=== PATIENT | male | born 1970 | race African-American/Black ===

== ENCOUNTER 2019-06-25 11:10 | Emergency (ER) | payer BC ==
[~2019-06-25] VITALS: Ht 182.9 cm; Wt 136.1 kg
[~2019-06-25 11:10] MED LIST: AGGRENOX 25 MG1 EACH PO; COQ-10100 MG PO; FISH OIL 1,0001 EAC8; IBUPROFEN 600600 M1 PO; LIPTRUZET PO; NORCO 5-325 TA1 EACH PO
[2019-06-25] MEDS ORDERED: ZETIA10 MG PO (11:41)
[2019-06-25] MEDS ORDERED: LIVALO4 MG PO (11:41)
[2019-06-25] MEDS ORDERED: COZAAR 25 MG TA25 M2 PO (11:42)
[2019-06-25] MEDS ORDERED: ACTOS 30 MG TAB30 M1 PO (11:42)
[2019-06-25] MEDS ORDERED: VASCEPA1 GM PO (11:43)
[2019-06-25] MEDS ORDERED: INVOKAMET 150-1 EACH PO (11:43)
[2019-06-25 13:22] VITALS: BP 131/82
[2019-06-30] MEDS ORDERED: OZEMPIC1 MG/0.75 SUBQ (08:59)
[2019-06-30] MEDS ORDERED: LOSARTAN POTASS50 MG PO (09:00)
[2019-06-30] MEDS ORDERED: ACTOS15 MG PO (09:22)
== END 2019-06-25 13:23 | disposition home or self-care (01) ==
LOC: ER 11:10
DX: R51 Headache (principal); R53.83 Other fatigue; E78.5 Hyperlipidemia, unspecified; Z86.73 Personal history of transient ischemic attack (TIA), and cerebral infarction without residual deficits; Z79.82 Long term (current) use of aspirin; Z79.899 Other long term (current) drug therapy

== ENCOUNTER → 2019-07-02 | Outpatient (CLI) | payer BC ==
[~2019-07-02] VITALS: Ht 180.3 cm; Wt 136.1 kg
[~2019-07-02] MED LIST changes: +ACTOS 30 MG TAB30 M1 PO; +ACTOS15 MG PO; +COZAAR 25 MG TA25 M2 PO; +INVOKAMET 150-1 EACH PO; +LIVALO4 MG PO; +LOSARTAN POTASS50 MG PO; +OZEMPIC1 MG/0.75 SUBQ; +VASCEPA1 GM PO; +ZETIA10 MG PO
[2019-07-02 13:11] LABS: HEMATOCRIT 45.5 % (42.0-52.0); HEMOGLOBIN 15.3 gm/dL (14.0-18.0); MCH 32.8 pg (26.0-34.0); MCHC 33.5 g/dL (28.0-37.0); MCV 97.7 fL (80.0-100.0); RBC 4.66 mil/uL (4.50-6.00); RDW 13.1 % (10.5-14.5); WBC 4.6 thou/uL (4.0-11.0)
[2019-07-02 13:13] LABS: URINE BILIRUBIN NEGATIVE (Negative); URINE BLOOD NEGATIVE (Negative); URINE CLARITY CLEAR; URINE COLOR YELLOW; URINE GLUCOSE-RANDOM* 3+ (Negative); URINE KETONES NEGATIVE (Negative); URINE LEUKOCYTES-REFLEX NEGATIVE (Negative); URINE NITRITE-REFLEX NEGATIVE (Negative); URINE PROTEIN (DIPSTICK) NEGATIVE (Negative)
[2019-07-02 13:27] LABS: ALBUMIN 4.1 g/dL (3.4-5.0); CALCIUM 8.9 mg/dL (8.5-10.1); CREATININE 1.2 mg/dL (0.7-1.3); PROTIME 10.2 Seconds (9.3-11.4)
[2019-07-03 00:08] LABS: GLYCOHEMOGLOBIN (HGB A1C) 6.4 % (4.8-5.6)
--- NOTE | 2019-08-01 11:33 | EKG ---
[facility] [place] [address] ELECTROCARDIOGRAM REPORT Name: VERÓNICA ESQUIVEL [facility] [id number] Admission: 07/02/19 Attend Phys: Reginald Gabriel MD Discharge: Date of : 72 Report #: [id number] THIS REPORT FOR: cc: Andrea Grover MD, John H. MD Couchonnal, Luis F. MD ~ THIS REPORT FOR: //name// [facility] Test Date: 2019-07-02 Test Time: 13:05:51 Pat Name: VERÓNICA ESQUIVEL Department: Room: Gender: Social Sciences Professor: JAYE KELLY : 1970 Requested By: Reginald Gabriel Order Number: [id number] MD: Jerrod Logan Measurements Intervals [place] Rate: 96 P: 58 GA: 157 QRS: 47 QRSD: 74 T: -25 QT: 334 QTc: 422 Interpretive Statements Sinus rhythm Inferior infarct, age indeterminate Compared to ECG 04/24/2013 00:59:30 No significant changes Electronically Signed On 07-02-2019 16:28:07 CDT by Jerrod Logan [email or web address] <ELECTRONICALLY SIGNED> By: Jerrod Logan MD 07/02/19 1628 1305 1305 Jerrod Logan MD /EPI
== END ==
LOC: OR → PAC 12:37 → OR 07-16 07:47 → EDSTATUS 07-16 13:29 → OR 07-16 15:06
PROVIDERS: Orthopaedic Surgery
DX: I21.19 ST elevation (STEMI) myocardial infarction involving other coronary artery of inferior wall (principal)

== ENCOUNTER → 2019-08-27 | Outpatient (CLI) | payer BC ==
[~2019-08-27] VITALS: Ht 182.9 cm; Wt 134.3 kg
[2019-08-27 09:00] LABS: HEMATOCRIT 43.7 % (42.0-52.0); HEMOGLOBIN 14.9 gm/dL (14.0-18.0); MCH 33.2 pg (26.0-34.0); MCHC 34.2 g/dL (28.0-37.0); MCV 97.3 fL (80.0-100.0); RBC 4.49 mil/uL (4.50-6.00); RDW 13.2 % (10.5-14.5); WBC 3.8 thou/uL (4.0-11.0)
[2019-08-27 09:03] LABS: CALCIUM 8.5 mg/dL (8.5-10.1); CREATININE 1.2 mg/dL (0.7-1.3); POTASSIUM 3.8 mmol/L (3.5-5.1)
[2019-08-27 09:26] VITALS: BP 139/82
--- NOTE | 2019-08-28 07:50 | EKG ---
[facility] [place] [address] ELECTROCARDIOGRAM REPORT Name: VERÓNICA ESQUIVEL Room #: REG [facility]#: [id number] Admission: 08/27/19 Attend Phys: Adan Ayala Discharge: Date of : 72 Report #: [id number] THIS REPORT FOR: cc: Andrea Grover MD, John H. MD Lundgren,Surya Dillard MD [facility] THIS REPORT FOR: //name// [facility] Test Date: 2019-08-27 Test Time: 08:52:23 Pat Name: VERÓNICA ESQUIVEL Department: Room: Gender: [employer] Machine Setter: [facility] : 1970 Requested By: Adan Ayala Order Number: [id number] MD: Surya Blevins Measurements Intervals [place] Rate: 94 P: 41 WI: 178 QRS: 32 QRSD: 92 T: -15 QT: 321 QTc: 402 Interpretive Statements Sinus rhythm Nonspecific ST segment abnormality Small inferior Q waves Compared to ECG 07/02/2019 13:05:51 No significant changes Electronically Signed On 08-28-2019 7:49:14 CDT by Surya Blevins [email or web address] <ELECTRONICALLY SIGNED> By: Surya Blevins MD, FACC 08/28/19 0749 0852 0852 Surya Blevins MD, [facility] /EPI
--- NOTE | 2019-09-02 10:23 | CATHLAB ---
[facility] [place] [address] INVASIVE PROCEDURE REPORT Name: VERÓNICA ESQUIVEL Room #: REG [facility] Leda#: [id number] Admission: 08/27/19 Attend Phys: Adan Ayala Discharge: Date of : 72 Report #: [id number] THIS REPORT FOR: cc: Andrea Grover MD, John H. MD Lammoglia, Francisco J. MD ~ APPROVED REPORT Study performed: 08/27/2019 09:17:26 Patient Details Patient Status: Out-Patient Room #: The patient is a 49 year-old male Event Personnel Adan Ayala Temporary Receptionist, Angelito Larios RN, Mel Quick Paschal, Ja'net RTR Monitor Procedures Performed Left Heart Cath w/or w/o Coronaries [id number] [facility] Art Access - R femoral artery* 35078 Initial Mod Sed Same Phys/QHP Gr5y 119306 42181 Mod Sed Same Phys/QHP Ea 102371 Hemostasis w/ Mynx, supervision of conscious sedation Indication Positive stress test, Chest pain Procedure Narrative The patient was brought electively to the Cardiac Catheterization Laboratory and was prepped and draped in a sterile manner. The Right Groin^ was infiltrated with 1% Lidocaine subcutaneous anesthesia. A Advanced Image EnhancementNACLE 6FR TIF Sheath #[id number] sheath was inserted into the RFA^. Coronary angiography was performed using coronary diagnostic catheters. The right coronary system was accessed and visualized with a JR4 catheter. The left coronary system was accessed and visualized with a JL4 catheter. The left ventricle was accessed and visualized with a ANGLED PIGTAIL catheter. Closure device was deployed with a Fr MYNXGRIP 6/7F #[id number]. The patient tolerated the procedure well and there were no complications associated with the procedure. There was no hematoma. Intraoperative Conscious Sedation Sedation start time: 9:50 Case end Time: 10:28 [facility] [place] [address] INVASIVE PROCEDURE REPORT Name: VERÓNICA ESQUIVEL Room #: REG Leda#: [id number] Admission: 08/27/19 Attend Phys: Adan Fitzgerald Discharge: Date of : 72 Report #: [id number] Versed 2 mg Fluoro Time: 3.60 minutes Dose: DAP 7284 cGycm2 1274 mGy Contrast Type and Amount: Omnipaque 55 ml Coronary Angiography The patient's coronary anatomy is right dominant. Diagnostic Cath Left Main Normal origin moderate caliber the proximal taper of less than 30%. He then continues giving rise to left anterior descending and left circumflex without significant high-grade disease. LAD Moderate caliber type II vessel which has luminal irregularities present as it courses in the anterior interventricular sulcus giving rise to several diagonal branches. It tapers in the distal third and terminates at the left ventricular apex as a bifurcating vessel Diagonal 1 Small insignificant caliber vessel without high-grade disease noted Circumflex Moderate caliber vessel which is rise to 2 early marginal branches and continues in the AV groove posteriorly to give a posterior wall marginal branch. This posterior wall marginal branch is quite small in size and has diffuse high-grade disease noted. A posterior atrial branch is present. The first marginal and second marginal have moderate lesions in the proximal third but then continue on on the lateral aspect of the ventricle without high-grade lesions noted OM1 Small caliber vessel of less than 1.5 mm in diameter that has irregularities of approximately 50% and is initial third. And then continues on without significant high-grade stenosis noted OM2 Small caliber vessel of approximately 1.5 to 2 mm in diameter that has a proximal eccentric lesion that appears to be approximately 75%. It does not impede DEDE I flow. Right Coronary Moderate caliber vessel normal origin with irregularities present of less than 30%. It reaches the proximal of the heart gives rise to a small posterior descending artery and terminates the posterior wall branch. No high degree obstructive lesions are noted R PDA Small caliber vessel with mild diffuse irregularities present Left Ventriculography Left Ventriculography was not performed. [facility] [address] [place] [address] INVASIVE PROCEDURE REPORT Name: VERÓNICA ESQUIVEL Room #: REG CL Leda#: [id number] Admission: 08/27/19 Attend Phys: Adan Fitzgerald Discharge: Date of : 72 Report #: [id number] Hemodynamics The aortic pressure is 112/81 mmHg with a mean of 95 mmHg. The left ventricular pressure is 126/9 mmHg with a mean of mmHg. The left ventricular end diastolic pressure is 20 mmHg. Conclusion 1. Coronary disease moderate involving left circumflex marginal branches 2. Normal hemodynamics Recommendations Cardiac Risk Reduction Program Aggressive Medical Therapy <ELECTRONICALLY SIGNED> By: Adan Ayala MD 09/02/19 1020 1020 1020 Adan Ayala MD /INF
== END | disposition home or self-care (01) ==
LOC: CATH 06:43
PROVIDERS: Internal Medicine
DX: R07.9 Chest pain, unspecified (principal); R94.39 Abnormal result of other cardiovascular function study; I25.10 Atherosclerotic heart disease of native coronary artery without angina pectoris; I10 Essential (primary) hypertension; E11.9 Type 2 diabetes mellitus without complications; E78.5 Hyperlipidemia, unspecified; G47.30 Sleep apnea, unspecified; K21.9 Gastro-esophageal reflux disease without esophagitis; Z98.890 Other specified postprocedural states; Z79.899 Other long term (current) drug therapy; Z86.73 Personal history of transient ischemic attack (TIA), and cerebral infarction without residual deficits; Z82.49 Family history of ischemic heart disease and other diseases of the circulatory system

== ENCOUNTER → 2019-10-06 | Outpatient (CLI) | payer BC ==
[~2019-10-06] MED LIST changes: +MS CONTIN15 MG PO; +NEURONTIN 300M300 M2 PO; +PERCOCET PO; +TOPROL XL25 MG PO
== END ==
LOC: LAB 14:42
PROVIDERS: ATTEND Student in an Organized Health Care Education/Training Program
DX: Z01.818 Encounter for other preprocedural examination (principal); Z11.59 Encounter for screening for other viral diseases

== ENCOUNTER 2019-10-09 08:32 | Day surgery (SDC) | payer BC ==
[2019-09-30 13:19] LABS: URINE BILIRUBIN NEGATIVE (Negative); URINE BLOOD 1+ (Negative); URINE CLARITY CLEAR; URINE COLOR YELLOW; URINE GLUCOSE-RANDOM* 3+ (Negative); URINE KETONES NEGATIVE (Negative); URINE LEUKOCYTES-REFLEX NEGATIVE (Negative); URINE NITRITE-REFLEX NEGATIVE (Negative); URINE PROTEIN (DIPSTICK) NEGATIVE (Negative); URINE UROBILINOGEN 0.2 E.U./dl (0.2-1.0)
[2019-09-30 13:20] LABS: HEMATOCRIT 43.6 % (42.0-52.0); MCH 33.1 pg (26.0-34.0); MCHC 34.3 g/dL (28.0-37.0); MCV 96.5 fL (80.0-100.0); RBC 4.52 mil/uL (4.50-6.00); RDW 13.4 % (10.5-14.5); WBC 4.2 thou/uL (4.0-11.0)
[2019-09-30 13:31] LABS: BACTERIA-REFLEX 1-9 Few /HPF (None Seen); CASTS None Seen /LPF (None Seen); CRYSTALS None Seen /LPF (None Seen); SQUAMOUS 0-3 Few /LPF (0-3); URINE RBC 0-2 Rare /HPF (0-2); URINE WBC-REFLEX None Seen /HPF (0-5)
[2019-09-30 13:39] LABS: ALBUMIN 4.1 g/dL (3.4-5.0); CALCIUM 8.7 mg/dL (8.5-10.1); CREATININE 1.2 mg/dL (0.7-1.3); POTASSIUM 3.6 mmol/L (3.5-5.1)
[2019-10-01 02:07] LABS: GLYCOHEMOGLOBIN (HGB A1C) 6.1 % (4.8-5.6)
[~2019-10-09] VITALS: Ht 180.3 cm; Wt 131.5 kg
--- NOTE | ~2019-10-09 | O ---
[facility] [place] [address] OPERATIVE REPORT Name: VERÓNICA ESQUIVEL Room #: 150-1 [facility] M..#: [id number] Admission: 10/09/19 Attend Phys: Reginald Gabriel MD Discharge: Date of : 72 Report #: [id number] THIS REPORT FOR: cc: Andrea Grover MD,Andrea Gabriel,Reginald Amin MD ~ CC: Andrea Gabriel DATE OF SERVICE: 10/09/2019 PREOPERATIVE DIAGNOSIS: Left knee osteoarthritis. POSTOPERATIVE DIAGNOSIS: Left knee osteoarthritis. PROCEDURE: Left total knee arthroplasty using Navio robotic assistance. SURGEON: Reginald Gabriel MD. BURRING WHEEL OPERATOR: Trinity Monsivais PA-C. INDICATIONS FOR BURRING WHEEL OPERATOR: Throughout the case, extensive retraction and manipulation of the knee was required. This was afforded to me by my scheduling assistant. ANESTHESIA: LMA with an adductor canal block. IMPLANTS: Soriano and Nephew size 8 Journey II BCS Oxinium femur, size 7 tibia, size 11 constrained polyethylene and the size 35 patella. TOURNIQUET TIME: 66 minutes. ESTIMATED BLOOD LOSS: 25 mL. COMPLICATIONS: None. SPECIMENS: None. CONDITION UPON LEAVING THE OPERATING ROOM: Stable. INDICATIONS FOR PROCEDURE: The patient is a 49-year-old gentleman with left knee osteoarthritis. He had failed conservative measures for this and after discussion with him, he elected for left total knee arthroplasty. DESCRIPTION OF PROCEDURE: Risks, benefits, alternatives and complications were discussed in detail with the patient including but not limited to risk of anesthesia, risk of damage to nerves, arteries, blood vessels, risk for [facility] [address] [place] [address] OPERATIVE REPORT Name: VERÓNICA ESQUIVEL Room #: 150-1 [facility]..#: [id number] Admission: 10/09/19 Attend Phys: Reginald Gabriel MD Discharge: Date of : 72 Report #: [id number] infection, bleeding, risk for continued knee pain, need for reoperation. Informed consent was obtained from the patient. Left knee was appropriately marked in the preoperative holding area. IV Ancef was given for preoperative antibiotics. He was brought to the operating room and placed in supine position on operating room table. LMA anesthesia was induced without complication. Tourniquet was placed on the left thigh. Left lower extremity was prepped and draped in normal sterile fashion. Timeout was performed properly identifying the patient and procedure as well as the instrumentation and implants. All in the operating room were in agreement. Left lower extremity was exsanguinated, tourniquet was inflated. Tourniquet time was 66 minutes. Standard midline approach to knee was made with 10 blade through the skin. Dissection was taken down sharply to the fascia and deep flaps were developed medially and laterally. Fresh 10 blade was used to make a medial parapatellar arthrotomy and the knee was inspected. There was severe medial compartment osteoarthritis with moderate lateral and patellofemoral osteoarthritis. ACL and PCL were removed sharply. Reference pins were placed in the femur and the tibia. The knee was then digitally mapped using the HQ plus robotic system. Intraoperative plan was made and we sized the size 8 femur with a size 7 tibia and a 10 spacer. After acceptance of the intraoperative plan, the distal femoral cut was made with a Navio bur. Distal femoral cutting block was then pinned in place and chamfer cuts were made on the femur. Attention was turned to the tibia. Medial and lateral meniscus were removed with Bovie cautery. Tibial resection guide was pinned in place using the Navio for placement and tibial resection was made. Flexion and extension gaps were checked and found to be somewhat tight medially in extension and the medial osteophytes were removed from the tibia. This balanced the knee well. After this, tibia was sized, found to be a size 7, a size 7 tibial trial was placed, pinned and punched. A size 8 femoral trial was placed and the box cut was made. This was then trialed with a size 10 and then a size 11 polyethylene had the best stability medially and laterally, both digitally as well as manually. A 9 mm was resected from the posterior surface of the patella and a size 35 patellar trial button was placed. Knee was taken through range of motion, found to be stable, found to have good patellar tracking. Trial components were removed. Bony ends were thoroughly irrigated with normal saline. Final size 7 tibia, size 8 Journey II BCS Oxinium femur and a size 35 patella were cemented in place using standard cementation techniques. While the cement cured, a periarticular injection consisting of morphine, ropivacaine, epinephrine and Toradol was placed around the knee joint capsule. After the cement cured, tourniquet was deflated. Hemostasis was obtained with Bovie cautery. Final size 11 constrained polyethylene was placed. A gram of vancomycin was placed deep in the joint and fascia was closed with 0 Vicryl, skin was closed with 2-0 Vicryl, skin staple and a BRIGITTE dressing was applied. [address] [address] OPERATIVE REPORT Name: VERÓNICA ESQUIVEL Room #: 150-1 REG [facility] MFlavio#: [id number] Admission: 10/09/19 Attend Phys: Reginald Gabriel MD Discharge: Date of : 72 Report #: [id number] The patient tolerated this procedure well and went to recovery room under care of anesthesia postoperatively. By: 1234 1247 Reginald Gabriel MD /nt
[~2019-10-09 08:32] MED LIST changes: -MS CONTIN15 MG PO; -NEURONTIN 300M300 M2 PO; -PERCOCET PO
[2019-10-09 09:54] VITALS: BP 129/75
[2019-10-09 14:16] VITALS: BP 113/62
[2019-10-09 20:05] VITALS: BP 113/70
[2019-10-10 04:10] VITALS: BP 106/66
[2019-10-10 08:09] LABS: HEMATOCRIT 40.4 % (42.0-52.0); HEMOGLOBIN 13.6 gm/dL (14.0-18.0); MCH 32.9 pg (26.0-34.0); MCHC 33.7 g/dL (28.0-37.0); MCV 97.7 fL (80.0-100.0); RBC 4.13 mil/uL (4.50-6.00); RDW 13.3 % (10.5-14.5); WBC 8.7 thou/uL (4.0-11.0)
[2019-10-10 08:16] VITALS: BP 119/73
[2019-10-10 10:34] VITALS: BP 119/73
[2019-10-10] MEDS ORDERED: MS CONTIN15 MG PO (11:07)
[2019-10-10] MEDS ORDERED: NEURONTIN 300M300 M2 PO (11:08)
[2019-10-10] MEDS ORDERED: PERCOCET PO (11:08)
[2019-10-10 11:35] VITALS: BP 119/73
== END 2019-10-10 13:28 | disposition home or self-care (01) ==
LOC: OR 08:32 → TBA 08:45 → OR 09:08 → 4S 13:36 → OR 14:46
PROVIDERS: ATTEND Orthopaedic Surgery
DX: M17.12 Unilateral primary osteoarthritis, left knee (principal); M25.562 Pain in left knee; I10 Essential (primary) hypertension; E78.00 Pure hypercholesterolemia, unspecified; E11.9 Type 2 diabetes mellitus without complications; G47.30 Sleep apnea, unspecified; K21.9 Gastro-esophageal reflux disease without esophagitis; E78.5 Hyperlipidemia, unspecified; Z98.890 Other specified postprocedural states; Z79.899 Other long term (current) drug therapy
CPT/HCPCS: 10102; 50010; 50101; 50415; 50954; 51130; 51225; 51320; 51412; 52001; 52282; 53000; 53078; 55372; 56527; 56528; 57095; 57103; 57110; 57127; 57180; 62110; 62900; 64039; 70005

== ENCOUNTER 2019-11-21 14:34 | Emergency (ER) | payer BC ==
[~2019-11-21] VITALS: Ht 182.9 cm; Wt 127.0 kg
[~2019-11-21 14:34] MED LIST changes: +MS CONTIN15 MG PO; +NEURONTIN 300M300 M2 PO; +PERCOCET PO
[2019-11-21 15:25] LABS: ABSOLUTE NEUTROPHILS 2.1 thou/uL (1.4-8.2); EOSINOPHILS 0.4 % (0.0-3.0); HEMATOCRIT 40.8 % (42.0-52.0); HEMOGLOBIN 13.6 gm/dL (14.0-18.0); LYMPHOCYTES 24.8 % (24.0-44.0); MCHC 33.3 g/dL (28.0-37.0); MCV 96.1 fL (80.0-100.0); MONOCYTES 8.5 % (1.0-8.0); PLATELET COUNT 276 thou/uL (150-400); POLYS 65.3 % (36.0-66.0); RBC 4.25 mil/uL (4.50-6.00); RDW 14.5 % (10.5-14.5); WBC 3.1 thou/uL (4.0-11.0)
[2019-11-21 15:42] LABS: ANION GAP 12 mmol/L (7-16); BUN 11 mg/dL (7-18); CALCIUM 8.9 mg/dL (8.5-10.1); CHLORIDE 104 mmol/L (98-107); CO2 25 mmol/L (21-32); CREATININE 1.2 mg/dL (0.7-1.3); GLUCOSE 92 mg/dL (74-106); POTASSIUM 3.9 mmol/L (3.5-5.1); SODIUM 141 mmol/L (136-145)
[2019-11-21 15:47] LABS: ALBUMIN 4.1 g/dL (3.4-5.0); SGOT 19 U/L (15-37); SGPT 20 U/L (30-65); TOTAL BILIRUBIN 0.6 mg/dL (0.2-1.0); TOTAL PROTEIN 8.4 g/dL (6.4-8.2); TROPONIN-I <0.06 ng/mL (<0.06)
[2019-11-21 21:51] VITALS: BP 152/79
--- NOTE | 2019-11-22 10:50 | EKG ---
[facility] [place] [address] ELECTROCARDIOGRAM REPORT Name: VERÓNICA ESQUIVEL Room #: [facility]#: [id number] Admission: 11/21/19 Attend Phys: Discharge: 11/21/19 Date of : 72 Report #: [id number] THIS REPORT FOR: cc: Andrea Grover MD, John H. MD Lundgren,Surya Dillard MD [facility] ~ THIS REPORT FOR: //name// [facility] ED Test Date: 2019-11-21 Test Time: 14:40:44 Pat Name: VERÓNICA ESQUIVEL Department: Room: Gender: Home School Coordinator: MARTINEMARY ANNE STEVENSON : 1970 Requested By: Ivy Soria Order Number: [id number] MD: Surya Blevins Measurements Intervals [place] Rate: 93 P: 65 HI: 181 QRS: 43 QRSD: 88 T: 3 QT: 345 QTc: 430 Interpretive Statements Sinus rhythm No significant abnormality Compared to ECG 08/27/2019 08:52:23 ST (T wave) deviation no longer present Electronically Signed On 11-22-2019 10:50:34 CDT by Surya Blevins [email or web address] <ELECTRONICALLY SIGNED> By: Surya Blevins MD, FACC 11/22/19 1050 1440 1440 Surya Blevins MD, [facility] /EPI
== END 2019-11-21 21:52 | disposition home or self-care (01) ==
LOC: ER 14:34
PROVIDERS: Nurse Practitioner
DX: R07.89 Other chest pain (principal); E78.5 Hyperlipidemia, unspecified; I10 Essential (primary) hypertension; E11.9 Type 2 diabetes mellitus without complications; I25.10 Atherosclerotic heart disease of native coronary artery without angina pectoris; Z79.82 Long term (current) use of aspirin; Z79.899 Other long term (current) drug therapy; Z86.73 Personal history of transient ischemic attack (TIA), and cerebral infarction without residual deficits; Z96.652 Presence of left artificial knee joint

== ENCOUNTER 2020-01-28 20:40 | Emergency (ER) | payer BC ==
[~2020-01-28] VITALS: Ht 182.9 cm; Wt 127.0 kg
[2020-01-28 23:46] LABS: ABSOLUTE NEUTROPHILS 2.6 thou/uL (1.4-8.2); BASOPHILS 0.8 % (0.0-2.0); EOSINOPHILS 0.6 % (0.0-3.0); HEMATOCRIT 43.9 % (42.0-52.0); HEMOGLOBIN 14.7 gm/dL (14.0-18.0); LYMPHOCYTES 31.6 % (24.0-44.0); MCH 31.7 pg (26.0-34.0); MCHC 33.5 g/dL (28.0-37.0); MCV 94.6 fL (80.0-100.0); MONOCYTES 10.1 % (1.0-8.0); PLATELET COUNT 236 thou/uL (150-400); POLYS 56.9 % (36.0-66.0); RBC 4.63 mil/uL (4.50-6.00); RDW 15.1 % (10.5-14.5); WBC 4.5 thou/uL (4.0-11.0)
[2020-01-29 00:03] LABS: ANION GAP 8 mmol/L (7-16); BUN 12 mg/dL (7-18); CALCIUM 9.2 mg/dL (8.5-10.1); CHLORIDE 102 mmol/L (98-107); CO2 29 mmol/L (21-32); CREATININE 1.3 mg/dL (0.7-1.3); GLUCOSE 95 mg/dL (74-106); POTASSIUM 3.8 mmol/L (3.5-5.1); SODIUM 139 mmol/L (136-145)
[2020-01-29 00:10] LABS: ALBUMIN 4.3 g/dL (3.4-5.0); DIRECT BILIRUBIN < 0.1 mg/dL (<0.1-0.2); SGOT 20 U/L (15-37); SGPT 33 U/L (30-65); TOTAL BILIRUBIN 0.3 mg/dL (0.2-1.0); TOTAL PROTEIN 8.2 g/dL (6.4-8.2)
[2020-01-29] MEDS ORDERED: BUTALB-APAP-CA1 EACH PO (00:44)
[2020-01-29 00:55] VITALS: BP 108/67
== END 2020-01-29 00:56 | disposition home or self-care (01) ==
LOC: ER 20:40
PROVIDERS: Emergency Medicine
DX: R51.9 Headache, unspecified (principal); E78.5 Hyperlipidemia, unspecified; I10 Essential (primary) hypertension; E11.9 Type 2 diabetes mellitus without complications; G47.30 Sleep apnea, unspecified; K21.9 Gastro-esophageal reflux disease without esophagitis; I25.10 Atherosclerotic heart disease of native coronary artery without angina pectoris; Z96.652 Presence of left artificial knee joint; Z86.73 Personal history of transient ischemic attack (TIA), and cerebral infarction without residual deficits

== ENCOUNTER 2021-04-12 18:51 | Inpatient (IN) | payer BC ==
[~2021-04-12] VITALS: Ht 182.9 cm; Wt 136.0 kg
[~2021-04-12 18:51] MED LIST changes: +BUTALB-APAP-CA1 EACH PO
[2021-04-12 18:55] VITALS: BP 135/75
[2021-04-12 19:33] LABS: ABSOLUTE NEUTROPHILS 2.1 thou/uL (1.4-8.2); BASOPHILS 1.3 % (0.0-2.0); HEMATOCRIT 45.7 % (42.0-52.0); HEMOGLOBIN 15.5 gm/dL (14.0-18.0); LYMPHOCYTES 37.3 % (24.0-44.0); MCH 33.5 pg (26.0-34.0); MCHC 33.9 g/dL (28.0-37.0); MCV 98.8 fL (80.0-100.0); MONOCYTES 8.6 % (1.0-8.0); PLATELET COUNT 236 thou/uL (150-400); POLYS 51.8 % (36.0-66.0); RBC 4.62 mil/uL (4.50-6.00); RDW 12.8 % (10.5-14.5); WBC 4.1 thou/uL (4.0-11.0)
[2021-04-12 19:39] LABS: CALCIUM 9.4 mg/dL (8.5-10.1); CREATININE 1.3 mg/dL (0.7-1.3)
[2021-04-12 19:49] LABS: ALBUMIN 4.3 g/dL (3.4-5.0); TOTAL BILIRUBIN 0.4 mg/dL (0.2-1.0)
[2021-04-12 21:22] VITALS: BP 136/80
--- NOTE | 2021-04-12 23:10 | NUR ---
PATIENT ADMITTED FROM ER VIA WHEELCHAIR. PATIENT IS AAOX4. CALM COOPERATIVE. AMBULATES UNDER OWN POWER. ADMITTED FOR CHEST PAIN. SYMPTOMS ON AND OFF FOR LAST 2-3 DAYS. DENIES ANY PAIN AT THIS TIME. URINATES VIA COMMODE. SAFETY PRECAUTIONS IN PLACE. NSR ON MONITOR. 98% RA. NO S/S OF DISTRESS NOTED AT THIS TIME. NO SKIN ISSUES NOTED.
[2021-04-12 23:43] LABS: CHOLESTEROL 165 mg/dL (<200); HDL CHOLESTEROL 63 mg/dL (>40); LDL CHOLESTEROL 74 mg/dL (<100); TC:HDL 2.6 Ratio (Not establshd); TRIGLYCERIDE 144 mg/dL (<150); VLDL 29 mg/dL (<40)
[2021-04-13 00:20] LABS: SERUM ASSESSMENT Slight Lipemia
[2021-04-13 03:46] VITALS: BP 112/78
[2021-04-13 05:55] LABS: CREATININE 1.2 mg/dL (0.7-1.3); POTASSIUM 3.9 mmol/L (3.5-5.1)
[2021-04-13 06:57] VITALS: BP 109/65
--- NOTE | 2021-04-13 07:18 | EKG ---
[address] [address] ELECTROCARDIOGRAM REPORT Name: VERÓNICA ESQUIVEL Room #: 200-I ADM IN M.R.#: [id number] Admission: 04/12/21 Attend Phys: Ray Altamirano MD Discharge: Date of : 72 Report #: [id number] [facility] ED Test Date: 2021-04-12 Test Time: 19:02:40 Pat Name: VERÓNICA ESQUIVEL Department: Room: 200 I Gender: Andressa Corporate Communications Associate: [id number] : 1970 Requested By: Chris George Order Number: [id number] : Carlos Enrique Lennon Measurements Intervals [place] Rate: 89 P: 44 TN: 187 QRS: 14 QRSD: 88 T: -2 QT: 338 QTc: 412 Interpretive Statements Sinus rhythm Compared to ECG 11/21/2019 14:40:44 No significant changes Electronically Signed On 04-13-2021 7:18:33 CUSTOMER MANAGEMENT SPECIALIST by Carlos Enrique Lennon [email or web address] <ELECTRONICALLY SIGNED> By: Carlos Enrique Lennon MD, [facility] 04/13/21 0718 01 01 Carlos Enrique Lennon MD, FACC /EPI
[2021-04-13 10:57] VITALS: BP 105/69
--- NOTE | 2021-04-13 12:37 | 2DMMODE ---
[facility] [place] [address] 2 D/M-MODE ECHOCARDIOGRAM Name: VERÓNICA ESQUIVEL Room #: 200-I ADM IN M.R.#: [id number] Admission: 04/12/21 Attend Phys: Ray Altamirano MD Discharge: Date of : 72 Report #: [id number] THIS REPORT FOR: cc: Andrea Grover MD, John H. MD Park, Jin S. MD ~ APPROVED REPORT Study performed: 04/13/2021 10:37:50 EXAM: Comprehensive 2D, Doppler, and color-flow Echocardiogram Patient Location: Bedside Room #: 200 Status: routine BSA: 2.53 HR: 86 bpm BP: 109/65 mmHg Rhythm: NSR Other Information Study Quality: Good Indications Diabetes CAD Cardiomyopathy Chest Pain Hypertension/HDD 2D Dimensions IVSd: 8.81 (7-11mm) LVOT Diam: 24.60 (18-24mm) LVDd: 42.06 mm PWd: 10.31 (7-11mm) Ascending Ao: 33.80 (22-36mm) LVDs: 31.47 (25-40mm) Left Atrium: 32.06 (27-40mm) Aortic Root: 31.66 mm IVC: 14.00 mm Volumes Left Atrial Volume (Systole) Single Plane 4CH: 34.96 mL Single Plane 2CH: 45.87 mL LA ESV Index: 18.00 mL/m2 Aortic Valve AoV Peak Niko.: 1.16 m/s [facility] [address] [place] [address] 2 D/M-MODE ECHOCARDIOGRAM Name: VERÓNICA ESQUIVEL Room #: 200-I ADM IN ..#: [id number] Admission: 04/12/21 Attend Phys: Ray Altamirano MD Discharge: Date of : 72 Report #: [id number] AO Peak Gr.: 5.42 mmHg LVOT Max P.10 mmHg LVOT Max V: 0.88 m/s NATALIIA Vmax: 3.59 cm2 Mitral Valve E/A Ratio: 1.0 MV Decel. Time: 198.64 ms MV E Max Niko.: 0.67 m/s MV A Niko.: 0.64 m/s MV PHT: 57.61 ms IVRT: 96.89 ms Pulmonary Valve PV Peak Niko.: 1.15 m/s PV Peak Gr.: 5.32 mmHg Left Ventricle The left ventricle is normal size. There is normal LV segmental wall motion. There is normal left ventricular wall thickness. The left ventricular systolic function is normal. LVEF is 50-55%. The left ventricular diastolic function is normal. Right Ventricle The right ventricle is normal size. The right ventricular systolic function is normal. Atria The left atrium size is normal. The right atrium size is normal. Aortic Valve The aortic valve is normal in structure. No aortic regurgitation is present. There is no aortic valvular stenosis. Mitral Valve The mitral valve is normal in structure. There is no mitral valve regurgitation noted. No evidence of mitral valve stenosis. Tricuspid Valve The tricuspid valve is normal in structure. There is no tricuspid valve regurgitation noted. Pulmonic Valve The pulmonary valve is normal in structure. There is no pulmonic valvular regurgitation. Great Vessels [facility] [address] [place] [address] 2 D/M-MODE ECHOCARDIOGRAM Name: VERÓNICA ESQUIVEL Room #: 200-I ADM IN ..#: [id number] Admission: 04/12/21 Attend Phys: Ray Altamirano MD Discharge: Date of : 72 Report #: [id number] The aortic root is normal in size. IVC is normal in size and collapses >50% with inspiration. Pericardium There is no pericardial effusion. <Conclusion> There is normal left ventricular wall thickness. The left ventricular systolic function is normal. The right ventricle is normal size. The left atrium size is normal. The aortic valve is normal in structure. There is no mitral valve regurgitation noted. <ELECTRONICALLY SIGNED> By: Bryant Barker MD 04/13/21 1236 1236 1236 Bryant Barker MD /INF
[2021-04-13 16:13] VITALS: BP 117/79
--- NOTE | 2021-04-13 17:01 | CATHLAB ---
[facility] [place] [address] INVASIVE PROCEDURE REPORT Name: VERÓNICA ESQUIVEL Room #: 200-I ADM IN M.R.#: [id number] Admission: 04/12/21 Attend Phys: Ray Altamirano MD Discharge: Date of : 72 Report #: [id number] THIS REPORT FOR: cc: Andrea Grover MD, John H. MD Park, Jin S. MD ~ APPROVED REPORT Study performed: 04/13/2021 14:40:04 Patient Details Patient Status: In-Patient Room #: 200 The patient is a 50 year-old male Event Personnel Bryant Barker Auto Service Instructor, Meg May RN RN, oNla Garnica RTR Adams Garcia Ja'net RTR Monitor Procedures Performed Left Heart Cath w/or w/o Coronaries [id number] [facility] Art Access - R femoral artery* PREETI Place w/wo Plasty Single OM 646234 Hemostasis w/ Mynx 05260 Initial Mod Sed Same Phys/QHP Gr5y 350529 61700 Mod Sed Same Phys/QHP Ea 083784 Indication Dyspnea, Unstable angina , Chest pain Risk Factors Hypercholesterolemia, Coronary Artery DiseaseHypertension, Diabetes Procedure Narrative The patient was brought urgently to the Cardiac Catheterization Laboratory and was prepped and draped in a sterile manner. The Right Groin^ was infiltrated with 1% Lidocaine subcutaneous anesthesia. A PINNACLE 4FR Sheath #[id number] sheath was inserted into the RFA^. Coronary angiography was performed using coronary diagnostic catheters. The right coronary system was accessed and visualized with a JR4 catheter. The left coronary system was accessed and visualized with a JL4 catheter. The left ventricle was accessed and visualized with a JR4 catheter. Left ventricular/Aortic Valve gradient assessed via catheter pullback. Closure device was deployed with a Fr MYNXGRIP 6/7F #[id number]. The patient tolerated the procedure well and there were no complications associated with the procedure. There was no hematoma. [facility] [address] [place] [address] INVASIVE PROCEDURE REPORT Name: VERÓNICA ESQUIVEL Room #: 200-I [facility] ..#: [id number] Admission: 04/12/21 Attend Phys: Ray Altamirano MD Discharge: Date of : 72 Report #: [id number] Intraoperative Conscious Sedation Sedation start time: 15:07 Case end Time: 15:48 Fentanyl 100 mcg Versed 2 mg Fluoro Time: 7.38 minutes Dose: DAP 26211.00 cGycm2 1702 mGy Contrast Type and Amount: Omnipaque 155 ml Coronary Angiography The patient's coronary anatomy is co- dominant. Diagnostic Cath Left Main The left main artery is a large-caliber vessel, patent with no flow-limiting lesions. LAD The LAD is a moderate-sized caliber vessel, traverses the anterior wall and wraps around the apex. There is mild disease in the midsegment, 20%. Diagonal 1 This is a small to moderate-sized caliber vessel, patent with no flow-limiting lesions. Diagonal 2 This is a small to moderate-sized caliber vessel, patent with no flow-limiting lesions. Circumflex The left circumflex artery is a codominant vessel. Supplies 2 obtuse marginal arteries that originate from the proximal left circumflex segment. Both vessels traverse the lateral wall down to the inferior segment. The distal left circumflex artery has severe diffuse disease. OM1 This is a moderate-sized caliber vessel with moderate stenosis in the proximal segment, 40 to 50%. OM2 This is a moderate-sized caliber vessel with severe proximal stenosis, 80% Right Coronary There is mild disease in the midsegment of the RCA, 20%. Supplies a PDA vessel. R PDA This is a moderate-sized caliber vessel, patent with no flow-limiting lesions. Left Ventriculography Left Ventriculography was not performed. An LVEDP was measured and there is no gradient across the outflow tract. Hemodynamics The aortic pressure is 106/68 mmHg with a mean of 85 mmHg. The left ventricular pressure is 126/9 mmHg with a mean of mmHg. The left ventricular end diastolic pressure is 15 mmHg. Pullback from the left [facility] [address] [place] [address] INVASIVE PROCEDURE REPORT Name: VERÓNICA ESQUIVEL Room #: 200-I ADM IN .R.#: [id number] Admission: 04/12/21 Attend Phys: Ray Altamirano MD Discharge: Date of : 72 Report #: [id number] ventricle to the aorta revealed no gradient across the aortic valve. PCI Technique Lesion Anticoagulation was achieved with Angiomax. Percutaneous coronary intervention was performed on the second obtuse marginal branch segment. The lesion stenosis prior to intervention was 80% with DEDE 3 flow. A VISTA 6FR XB 3.5 #[id number] Guide Catheter was used to engage the Left coronary artery ostium. A Luge Wire .014 x 182CM #[id number] Interventional Guidewire was used to cross the lesion. BALLOON DILATION A Balloon catheter Euphora RX 2.25 x 12 #[id number] was inserted and inflated up to 6.00atm for 22seconds. Additional Inflation: 6.00atm for 22seconds. Additional Inflation: 8.00atm for 14seconds. STENT DEPLOYMENT A stent RESOLUTE OSMIN RX 2.25 X 34 #[id number] was inserted and inflated up to 14.00atm for 25seconds. POST STENT DEPLOYMENT BALLOON DILATION A Balloon catheter Euphora NC RX 2.5 x 15 #[id number] was inserted and inflated up to 12.00atm for 22seconds. Additional Inflation: 16.00atm for 11seconds. Additional Inflation: 16.00atm for 15seconds. Final angiography reveals 0 % stenosis with DEDE 3 flow. Conclusion 1. PCI performed with placement of a drug-eluting stent into the proximal segment of the second obtuse marginal artery. 2. There is moderate disease in the first obtuse marginal artery. 3. There is severe diffuse disease in the distal left circumflex artery, recommend medical therapy. 4. There is mild disease in the mid LAD and mid RCA. 5. Recommend dual antiplatelet therapy and aggressive risk factor management. <ELECTRONICALLY SIGNED> By: Bryant Barker MD 04/13/211699 99 99 Bryant Barker MD /INF
--- NOTE | 2021-04-13 18:24 | NUR ---
PATIENT BACK FROM [facility] AT 1640. RIGHT GROIN ACCESS NO NLEEDING. NO HEMOTOMA. MSR ON MONITOR. PATIENT DENIES PAIN. WILL KEEP MONITOR.
[2021-04-13 19:49] VITALS: BP 119/80
[2021-04-13 23:20] VITALS: BP 143/93
--- NOTE | 2021-04-13 23:58 | NUR ---
ASSUMED PT CARE AT AROUND 1915 HRS. PT ALERT AND ORIENTED. SR ON TELEMETRY. ROOM AIR AT FIRST. SHIFT WENT ALONG, PT REPORTS WAKING UP GASPING FOR AIR THE MOMENT HE FALLS DEEP ASLEEP.DENIES CHEST PAIN.PLACED ON FOR COMFORT. GOOD PULSES TO EXTREMETIES. WARM BLANKET PLACED OVER FEET.PT ALSO REPORTS FEELING A LITTLE JITTERY. DENIES TAKING ANY ANXIETY MEDS AT HOME. RIGHT GROIN WITH NO HEMATOMA. HS BLOOD SUGAR OF 87. NSR ON TELEMETRY.CALL LIGHT WITHIN REACH.
[2021-04-14 01:11] LABS: GLYCOHEMOGLOBIN (HGB A1C) 6.2 % (4.8-5.6)
[2021-04-14 02:53] LABS: BE(vivo) 1.1 mmol/L (-2 to +3); HCO3 25.1 mmol/L (22.0-26.0); PO2 81.3 mmHg (80.0-100.0); pH 7.438 (7.360-7.450); sO2 96.4 % (92.0-98.0)
[2021-04-14 03:07] LABS: HEMOGLOBIN 14.7 gm/dL (14.0-18.0); MCH 32.7 pg (26.0-34.0); MCHC 33.3 g/dL (28.0-37.0); MCV 98.1 fL (80.0-100.0); RBC 4.48 mil/uL (4.50-6.00); WBC 5.2 thou/uL (4.0-11.0)
[2021-04-14 03:39] LABS: ALBUMIN 3.8 g/dL (3.4-5.0); CALCIUM 8.7 mg/dL (8.5-10.1); CREATININE 1.2 mg/dL (0.7-1.3); POTASSIUM 3.7 mmol/L (3.5-5.1); TOTAL BILIRUBIN 0.5 mg/dL (0.2-1.0); TOTAL PROTEIN 7.3 g/dL (6.4-8.2)
[2021-04-14 04:12] VITALS: BP 117/72
[2021-04-14 06:56] VITALS: BP 126/76
--- NOTE | 2021-04-14 07:46 | EKG ---
[place] [address] [facility] [place] [address] ELECTROCARDIOGRAM REPORT Name: VERÓNICA ESQUIVEL Room #: 200-I ADM IN M.R.#: [id number] Admission: 04/12/21 Attend Phys: Dawit Larry MD Discharge: Date of : 72 Report #: [id number] [facility] Test Date: 2021-04-13 Test Time: 16:40:05 Pat Name: VERÓNICA ESQUIVEL Department: Room: 200 I Gender: M Diathermy Equipment Repairer: DEREK : 1970 Requested By: Bryant Barker Order Number: [id number] MD: Carlos Enrique Lennon Measurements Intervals [place] Rate: 87 P: 50 VT: 192 QRS: 15 QRSD: 88 T: -30 QT: 338 QTc: 407 Interpretive Statements Sinus rhythm Abnormal R-wave progression, early transition Borderline repolarization abnormality Compared to ECG 04/12/2021 19:02:40 No significant changes Electronically Signed On 04-14-2021 7:46:20 PARKING LOT MANAGER by Carlos Enrique Lennon [email or web address] <ELECTRONICALLY SIGNED> By: Carlos Enrique Lennon MD, [facility] 04/14/21 0746 [facility] Carlos Enrique Lennon MD, FACC /EPI
--- NOTE | 2021-04-14 07:47 | EKG ---
[place] [address] [facility] [place] [address] ELECTROCARDIOGRAM REPORT Name: VERÓNICA ESQUIVEL Room #: 200-I ADM IN M.R.#: [id number] Admission: 04/12/21 Attend Phys: Dawit Larry MD Discharge: Date of : 72 Report #: [id number] [facility] Test Date: 2021-04-14 Test Time: 07:22:50 Pat Name: VERÓNICA ESQUIVEL Department: Room: 200 I Gender: M General Passenger Agent: SHIVANI : 1970 Requested By: Bryant Barker Order Number: [id number] MD: Carlos Enrique Lennon Measurements Intervals [place] Rate: 89 P: 51 [place]: 196 QRS: 31 QRSD: 91 T: -24 QT: 341 QTc: 415 Interpretive Statements Sinus rhythm Borderline repolarization abnormality Compared to ECG 04/13/2021 16:40:05 No significant changes Electronically Signed On 04-14-2021 7:47:12 [employer] by Carlos Enrique Lennon [email or web address] <ELECTRONICALLY SIGNED> By: Carlos Enrique Lennon MD, [facility] 04/14/21 0747 1 Carlos Enrique Lennon MD, FACC /EPI
[2021-04-14] MEDS ORDERED: BRILINTA90 MG PO (08:41)
[2021-04-14] MEDS ORDERED: BAYER CHEWABLE81 MG PO (08:42)
--- NOTE | 2021-04-14 09:45 | NUR ---
FULL CODE. A/O X 4. ROOM AIR. AD SHEILA. RIGHT GROIN DRESSING D/C/I. RIGHT AC PIV SALINE LOCKED. BS 98. VSS. NO PAIN NOTED. NO SOB NOTED.
[2021-04-14] MEDS ORDERED: PLAVIX 75 MG TA75 MG PO (10:58)
[2021-04-14 11:01] VITALS: BP 126/76
== END 2021-04-14 14:34 | disposition home or self-care (01) | DRG 247 ==
LOC: ER 18:51 → 2N 20:03 → EROBS 20:03 → 2N 21:30
PROVIDERS: Emergency Medicine; Internal Medicine Cardiovascular Disease; Nurse Practitioner Family; ADMIT Hospitalist; ATTEND Hospitalist
PROC: 4A023N7 Measurement of Cardiac Sampling and Pressure, Left Heart, Percutaneous Approach (ICD-10-PCS; principal; 2021-04-13)
PROC: 027034Z Dilation of Coronary Artery, One Artery with Drug-eluting Intraluminal Device, Percutaneous Approach (ICD-10-PCS; principal; 2021-04-13)
PROC: B2111ZZ Fluoroscopy of Multiple Coronary Arteries using Low Osmolar Contrast (ICD-10-PCS; principal; 2021-04-13)
DX: I25.110 Atherosclerotic heart disease of native coronary artery with unstable angina pectoris (principal); Z68.41 Body mass index [BMI] 40.0-44.9, adult; I42.9 Cardiomyopathy, unspecified; K21.9 Gastro-esophageal reflux disease without esophagitis; E66.9 Obesity, unspecified; E11.9 Type 2 diabetes mellitus without complications; Z96.652 Presence of left artificial knee joint; I10 Essential (primary) hypertension; E78.5 Hyperlipidemia, unspecified; G47.33 Obstructive sleep apnea (adult) (pediatric); Z20.822 Contact with and (suspected) exposure to COVID-19; Z86.73 Personal history of transient ischemic attack (TIA), and cerebral infarction without residual deficits; Z83.3 Family history of diabetes mellitus; Z80.3 Family history of malignant neoplasm of breast; Z82.49 Family history of ischemic heart disease and other diseases of the circulatory system; Z79.899 Other long term (current) drug therapy; Z79.82 Long term (current) use of aspirin; Z79.84 Long term (current) use of oral hypoglycemic drugs
CPT/HCPCS: 10081

== ENCOUNTER 2021-04-17 11:32 | Emergency (ER) | payer BC ==
[~2021-04-17] VITALS: Ht 182.9 cm; Wt 136.1 kg
[~2021-04-17 11:32] MED LIST changes: +BAYER CHEWABLE81 MG PO; +BRILINTA90 MG PO; +PLAVIX 75 MG TA75 MG PO
[2021-04-17 12:09] LABS: BASOPHILS 0.4 % (0.0-2.0); EOSINOPHILS 0.3 % (0.0-3.0); HEMATOCRIT 46.8 % (42.0-52.0); HEMOGLOBIN 15.6 gm/dL (14.0-18.0); LYMPHOCYTES 20.8 % (24.0-44.0); MCHC 33.3 g/dL (28.0-37.0); MONOCYTES 8.3 % (1.0-8.0); PLATELET COUNT 235 thou/uL (150-400); POLYS 70.2 % (36.0-66.0); RBC 4.73 mil/uL (4.50-6.00); WBC 4.3 thou/uL (4.0-11.0)
[2021-04-17 12:15] LABS: CALCIUM 9.5 mg/dL (8.5-10.1); CREATININE 1.2 mg/dL (0.7-1.3)
[2021-04-17 12:24] LABS: ALBUMIN 4.3 g/dL (3.4-5.0); TOTAL BILIRUBIN 0.7 mg/dL (0.2-1.0)
[2021-04-17] MEDS ORDERED: AUGMENTIN 875-1 EACH PO (14:03)
[2021-04-17 14:35] VITALS: BP 117/77
--- NOTE | 2021-04-18 07:30 | EKG ---
[place] [address] [facility] [email or web address] [address] ELECTROCARDIOGRAM REPORT Name: VERÓNICA ESQUIVEL Room #: [facility]P [facility] [id number] Admission: 04/17/21 Attend Phys: Discharge: 04/17/21 Date of : 72 Report #: [id number] [facility] ED Test Date: 2021-04-17 Test Time: 11:39:50 Pat Name: VERÓNICA ESQUIVEL Department: Room: Gender: M Chemical Technician: ZACHARY : 1970 Requested By: Kvng Gimenez Order Number: [id number] MD: Carlos Enrique Lennon Measurements Intervals [place] Rate: 96 P: 19 [place]: 188 QRS: 13 QRSD: 103 T: -16 QT: 335 QTc: 424 Interpretive Statements Sinus rhythm Borderline T abnormalities, inferior leads Compared to ECG 04/14/2021 07:22:50 T-wave abnormality now present Electronically Signed On 04-18-2021 7:29:54 [employer]ACLE HYPERION CONSULTANT by Carlos Enrique Lennon [email or web address] <ELECTRONICALLY SIGNED> By: Carlos Enrique Lennon MD, [facility] 04/18/21 0729 1139 [id number] Carlos Enrique Lennon MD, FACC /EPI
== END 2021-04-17 14:51 | disposition home or self-care (01) ==
LOC: ER 11:32
PROVIDERS: Emergency Medicine
DX: J18.9 Pneumonia, unspecified organism (principal); Z20.822 Contact with and (suspected) exposure to COVID-19; E78.5 Hyperlipidemia, unspecified; I10 Essential (primary) hypertension; E11.9 Type 2 diabetes mellitus without complications; K21.9 Gastro-esophageal reflux disease without esophagitis; Z86.73 Personal history of transient ischemic attack (TIA), and cerebral infarction without residual deficits; Z98.890 Other specified postprocedural states